=== PATIENT | male | born 1970 | race African-American/Black ===

== ENCOUNTER 2017-07-18 23:55 | Emergency (ER) | payer MEDICAID, OTHER ==
[~2017-07-18] VITALS: Ht 180.3 cm; Wt 72.7 kg
[2017-07-19] MEDS ORDERED: HYDROCODONE/ACETAMINOPHEN 5-325 MG TABLET PO ONE (01:15)
[2017-07-19] MEDS ORDERED: BUPIVACAINE HCL/PF 0.5% 10 ML VIAL SQ ONE (01:15)
[2017-07-19] MEDS ORDERED: CEPHALEXIN MONOHYDRATE 500 MG CAPSULE PO ONE (01:15)
[2017-07-19] MEDS ORDERED: IBUPROFEN 600 MG TABLET PO ONE (01:15)
[2017-07-19 03:43] VITALS: BP 129/85
== END 2017-07-19 03:53 | disposition home or self-care (01) ==
LOC: EMS 23:56
DX: S52.122A Displaced fracture of head of left radius, initial encounter for closed fracture (principal); S63.277A Dislocation of unspecified interphalangeal joint of left little finger, initial encounter; S61.217A Laceration without foreign body of left little finger without damage to nail, initial encounter; F17.210 Nicotine dependence, cigarettes, uncomplicated; V19.9XXA Pedal cyclist (driver) (passenger) injured in unspecified traffic accident, initial encounter; Y93.89 Activity, other specified; Y92.89 Other specified places as the place of occurrence of the external cause; Y99.8 Other external cause status
CPT/HCPCS: 12002; 26770; 29125; 29280; 73080; 73090; 73130; 99284; 99406; J3490

== ENCOUNTER 2019-04-03 18:52 | Emergency (ER) | payer MEDICAID ==
[~2019-04-03] VITALS: Ht 182.9 cm; Wt 78.2 kg
[2019-04-03] MEDS ORDERED: CEPHALEXIN MONOHYDRATE 500 MG CAPSULE PO ONE (19:45)
[2019-04-03] MEDS ORDERED: SULFAMETHOX/TRIMETH DS 800-160 MG/TABLET PO ONE (19:45)
[2019-04-03 20:18] VITALS: BP 131/76
[2019-04-03] MEDS ORDERED: BACITRACIN 0.9 GM PACKET OINTMENT TP ONE (20:30)
== END 2019-04-03 20:22 | disposition home or self-care (01) ==
LOC: EMS 18:55
DX: L03.116 Cellulitis of left lower limb (principal); B35.3 Tinea pedis; F17.210 Nicotine dependence, cigarettes, uncomplicated

== ENCOUNTER 2024-05-23 11:05 | Emergency (ER) | payer MEDICAID, OTHER ==
[~2024-05-23] VITALS: Ht 185.4 cm; Wt 75.0 kg
[2024-05-23 11:25] VITALS: TEMP 98.5
[2024-05-23] MEDS ORDERED: HYDR30CR3 TP (13:22)
[2024-05-23] MEDS ORDERED: NAPH15DR75 OU (13:22)
[2024-05-23] MEDS ORDERED: HYDR-4072 PO (13:22)
[2024-05-23] MEDS ORDERED: MINE3.5O29 OU (13:34)
[2024-05-23] MEDS: HYDROCODONE/ACETAMINOPHEN 5-325 MG TABLET PO ONE (13:38)
[2024-05-23 13:49] VITALS: BP 121/72; PULSE 78; RESP 18; O2SAT 99
== END 2024-05-23 13:57 | disposition home or self-care (01) ==
LOC: EMS 11:05
DX: H10.531 Contact blepharoconjunctivitis, right eye (principal); F17.210 Nicotine dependence, cigarettes, uncomplicated
CPT/HCPCS: 99283

== ENCOUNTER 2024-08-08 08:18 | Emergency (ER) | payer OTHER ==
[~2024-08-08] VITALS: Ht 183.5 cm; Wt 83.6 kg
[~2024-08-08 08:18] MED LIST: HYDR-4072 PO; HYDR30CR3 TP; MINE3.5O29 OU; NAPH15DR75 OU
[2024-08-08 08:48] VITALS: BP 139/69; PULSE 113; RESP 14; TEMP 98.4; O2SAT 98
[2024-08-08 09:24] LABS: EOSINOPHILS % (AUTO) 3.7 % (1.0-6.0); LYMPHOCYTES # (AUTO) 1.3 K/uL (1.0-4.8); MEAN CORPUSCULAR HEMOGLOBIN 31.2 pg (26.0-34.0); MEAN CORPUSCULAR HGB CONC 33.5 G/dL (31.0-37.0); MEAN CORPUSCULAR VOLUME 93 fL (80-100); MONOCYTES # (AUTO) 0.7 K/uL (0.1-1.0); NEUTROPHILS % (AUTO) 63.3 % (40.0-70.0); PLATELET COUNT (AUTO) 293 K/uL (150-450); WHITE BLOOD COUNT (AUTO) 6.3 K/uL (4.5-11.0)
[2024-08-08 09:32] LABS: ANION GAP 6 mmol/L (8-16); CALCIUM, TOTAL 8.7 mg/dL (8.8-10.5); CARBON DIOXIDE 32 mmol/L (22-29); CHLORIDE 101 mmol/L (98-107); CREATININE 1.15 mg/dL (0.60-1.30); GLOMERULAR FILTR. RATE CALC > 60 mL/min (>60); GLUCOSE,RANDOM 91 mg/dL (70-110); POTASSIUM 3.7 mmol/L (3.5-5.1); SODIUM SERUM 139 mmol/L (136-145); UREA NITROGEN, BLOOD 13 mg/dL (7-18)
== END 2024-08-08 11:33 | disposition home or self-care (01) ==
LOC: EMS 08:18
DX: L03.115 Cellulitis of right lower limb (principal); F17.210 Nicotine dependence, cigarettes, uncomplicated
CPT/HCPCS: 80048; 85025; 99283